=== PATIENT | male | born 1995 | race Caucasian/White ===

== ENCOUNTER 2019-10-06 15:06 | Emergency (ER) | payer OTHER, SELFPAY ==
[~2019-10-06] VITALS: Ht 182.9 cm; Wt 81.2 kg
[2019-10-06 15:15] VITALS: BP 133/52
--- NOTE | 2019-10-06 15:15 | NUR ---
PATIENT AMBULATED TO BED 9.
[2019-10-06] MEDS ORDERED: ACETAMINOPHEN EXTRA STRENGTH 500 MG TAB PO ONE (15:20)
--- NOTE | 2019-10-06 15:30 | NUR ---
Pt c/o fever, dry cough, sore throat, and body aches starting this morning, states he took a pill from [place] for fever at 1245: unknown name. Patient states he had several co-workers positive for COVID about 2 weeks ago and he was working with him. Otherwise, he denies any chest pain, SOB, nausea, vomiting, or diarrhea.
--- NOTE | 2019-10-06 15:50 | NUR ---
Covid swab obtained and sent to the lab.
[2019-10-06 16:32] VITALS: BP 103/51
== END 2019-10-06 16:32 | disposition home or self-care (01) ==
LOC: MED 15:06
DX: R50.9 Fever, unspecified (principal); Z20.828 Contact with and (suspected) exposure to other viral communicable diseases
CPT/HCPCS: 71045; 93005; 99285; Q0092; U0003

== ENCOUNTER 2020-07-13 19:42 | Emergency (ER) | payer OTHER, SELFPAY ==
[~2020-07-13] VITALS: Ht 182.9 cm; Wt 86.2 kg
[2020-07-13 19:46] VITALS: BP 132/90
--- NOTE | 2020-07-13 19:46 | NUR ---
TO BED AMBULATORY
--- NOTE | 2020-07-13 20:00 | NUR ---
see complete assessment.
--- NOTE | 2020-07-13 20:02 | NUR ---
Dr. Miller with pt for MSE
--- NOTE | 2020-07-13 20:15 | NUR ---
XR at bedside.
[2020-07-13 20:50] LABS: BASOPHILS # (AUTO) 0.1 K/uL (0.00-0.22); BASOPHILS % (AUTO) 0.8 % (0.0-2.0); EOSINOPHILS # (AUTO) 0.5 K/uL (0-0.4); EOSINOPHILS % (AUTO) 5.8 % (0.0-4.0); HEMATOCRIT 43.1 % (36-52); HEMOGLOBIN 14.9 g/dL (12.0-18.0); LYMPHOCYTES # (AUTO) 2.9 K/uL (2.0-11.5); LYMPHOCYTES % (AUTO) 34.5 % (20.5-51.1); MEAN CORPUSCULAR HEMOGLOBIN 31 pg (27-31); MEAN CORPUSCULAR HGB CONC 35 g/dL (33-37); MEAN CORPUSCULAR VOLUME 90.5 fL (80-94); MONOCYTES # (AUTO) 0.6 K/uL (0.8-1.0); MONOCYTES % (AUTO) 6.7 % (1.7-9.3); NEUTROPHILS # (AUTO) 4.4 K/uL (1.8-7.7); NEUTROPHILS % (AUTO) 52.2 % (42.2-75.2); PLATELET COUNT (AUTO) 272 K/uL (140-450); RED BLOOD CELL COUNT(AUTO) 4.76 MIL/uL (4.20-6.10); RED CELL DISTRIBUTION WIDTH 13.2 % (11.6-13.7); WHITE BLOOD COUNT (AUTO) 8.4 K/uL (4.8-10.8)
[2020-07-13 20:57] LABS: ALBUMIN 3.7 g/dL (3.4-5.0); ANION GAP 12.8 (8-16); CARBON DIOXIDE 26.3 mmol/L (21-32); CREATININE 0.8 mg/dL (0.6-1.3); POTASSIUM 4.1 mmol/L (3.5-5.1); TOTAL BILIRUBIN 0.6 mg/dL (0.0-1.0)
[2020-07-13 22:00] VITALS: BP 101/70
--- NOTE | 2020-07-13 22:00 | NUR ---
Patient discharged with v/s stable. Written and verbal after care instructions given and explained. Patient verbalized understanding. Ambulatory with steady gait. All questions addressed prior to discharge. Advised to follow up with PMD.
== END 2020-07-13 22:00 | disposition home or self-care (01) ==
LOC: MED 19:42
DX: M94.0 Chondrocostal junction syndrome [Tietze] (principal); J45.909 Unspecified asthma, uncomplicated
CPT/HCPCS: 36415; 71045; 80053; 84484; 85025; 85379; 93005; 99285